=== PATIENT | female | born 1990 | race Caucasian/White ===

== ENCOUNTER 2022-10-23 19:54 | Emergency (ER) | payer SELFPAY ==
[2022-10-23] MEDS ORDERED: Famotidine 20 MG TAB ONE (20:47)
[2022-10-23] MEDS ORDERED: diphenhydrAMINE 50 MG CAP ONE (20:47)
[2022-10-23] MEDS ORDERED: predniSONE 20 MG TAB ONE (20:47)
== END 2022-10-23 22:21 | disposition home or self-care (01) ==
LOC: ERS 19:54
DX: L50.0 Allergic urticaria (principal)
CPT/HCPCS: 99282; J7512

== ENCOUNTER 2022-10-25 06:25 | Emergency (ER) | payer SELFPAY ==
[2022-10-25] MEDS ORDERED: Dexamethasone 10 MG/ML VIAL ONE (07:31)
== END 2022-10-25 07:58 | disposition home or self-care (01) ==
LOC: ERS 06:25
DX: L50.9 Urticaria, unspecified (principal)
CPT/HCPCS: 96372; 99282; J1100